=== PATIENT | female | born 1980 | race Caucasian/White ===

== ENCOUNTER 2016-03-17 10:58 | Day surgery (SDC) | payer OTHER ==
[2016-03-17] VITALS (7 sets, daily range): BP systolic 149–163; BP diastolic 73–99; PULSE 60–72; RESP 13–16; O2SAT 97–100
[~2016-03-17] VITALS: Ht 167.6 cm; Wt 82.1 kg
[~2016-03-17 10:58] MED LIST: BUPR1FIL3 SL; CeFAZolin Inj 2 GM in IV Premix 1 EACH IV ONE; FLUO20CA25 PO; IBUP800T28 PO; LISI10TA PO; NICO1PAT39 TD; PROP20TA5 PO; oral birth control
[2016-03-17] MEDS ORDERED: HYDROmorphone 2 mg/mL Inj ONE (10:59)
[2016-03-17] MEDS ORDERED: Ondansetron 2 mg/mL 2 mL Inj ONE (10:59)
[2016-03-17] MEDS ORDERED: MeTOProlol 1 mg/mL 5 mL Inj ONE (10:59)
[2016-03-17] MEDS ORDERED: Dexamethasone 4 mg/mL Inj ONE (10:59)
[2016-03-17] MEDS ORDERED: Propofol 10,000 mCg/mL 20 mL Inj ONE (10:59)
[2016-03-17] MEDS ORDERED: MetoCLOpramide 5 mg/mL 2 mL Inj ONE (10:59)
[2016-03-17] MEDS ORDERED: fentaNYL-PF 50 mCg/mL 2 mL Inj ONE (10:59)
[2016-03-17] MEDS ORDERED: CeFAZolin 2 Gm/50 mL D5W Duplex Bag IV ONE (11:04)
[2016-03-17] MEDS: Lactated Ringer's 1,000 ML IV SCH ×3 (12:01→16:15)
--- NOTE | 2016-03-17 12:44 | PCM.HPANE ---
Patient Data Surgeon Admitting Provider: Attending Provider:Fermin Nuñez DPM Primary Care Physician:Clinic,[facility] Residency Other Provider:Dodie Bustos Anesthesia Reason for Visit Right Foot Calcaneous [place] Fracture Ht/WT & BMI Height (Feet): 5 Height (Inches): 6.00 Weight (Kilograms): 82.1 Body Mass Index 29.00 Allergies Coded Allergies: pseudoephedrine (Verified Allergy, Severe, HEART RACES, 12/29/08) Past Anesthesia History Anesthesia History: Denies:: Abnormal Airway, Anesthesia Reactions (very nauseated ), Difficult Intubation, Fam Anesthesia Reaction Diabetes History Hx Diabetes?: No MRSA MRSA: No Medications Hypertension Medication: Yes Home Meds Incl Beta Jimi: Yes Date Beta Jimi Taken: Mar 17, 2016 Time Beta Jimi Taken: 814 Reported Medications [oral control] No Conflict Check1 Tab DAILY 03/15/16 Nicotine (Nicoderm Cq 7 mg/24 hr)1 Each Patch.[id number] Each TD DAILY 14 Days Ref 0 03/15/16 Ibuprofen 800 Mg [id number] Mg PO BID PRN For Pain Ref 0 03/15/16 Fluoxetine 20 Mg [id number] Mg PO DAILY Ref 0 03/15/16 Lisinopril 10 Mg [id number] Mg PO DAILY 30 Days Ref 0 03/15/16 Propranolol HCl 20 Mg [id number] Mg PO BID 90 Days Ref 0 03/15/16 Buprenorphine HCl/Naloxone HCl (Suboxone 8 mg-2 mg Sl Film)1 Each Film2 Each SL DAILY Ref 0 03/15/16 Discontinued Reported Medications Fluoxetine 40 Mg [id number] Mg PO BID #30 12/17/15 Clindamycin 150 Mg [id number] Mg PO TID #60 12/17/15 Buprenorphine HCl/Naloxone HCl (Suboxone 8 mg-2 mg Sl Film)1 Each Film2 Each SL DAILY Ref 0 12/17/15 Propranolol HCl 20 Mg/5 Ml [id number] Mg PO BID 12/17/15 Discontinued Scripts Buprenorphine HCl/Naloxone HCl (Suboxone 8 mg-2 mg Sl Film)1 Each Film1 Each SL DAILY PRN For Pain #10 FILM Prov:Marlo Gaona MD 12/17/15 History History of ENT Problems?: No HEENT History: Positive for:: TMJ (grinds- has nightguard, doesnt always wear) Denies:: Abnormal Airway Cataracts Difficult Intubation Dysphagia Glaucoma Hearing Problem Sinus Problem Other HEENT Pertinent History: has flipper, doesn't always wear Hx of Heart Problems?: Yes Cardiovascular History: Positive for:: Hypertension Denies:: AICD Congestive Heart Failure Heart Murmur Irregular Heartbeat Pacemaker Peripheral Vascular Hx of Respiratory Problem?: No Respiratory History: Denies:: Asthma COPD Oxygen Administration Pneumonia Tuberculosis Use of C-PAP Machine Use of Inhalers / NEBS Hx Neurologic Problems?: Yes Neurological History: Positive for:: Headaches Denies:: CVA Dementia Dizziness Multiple Sclerosis Parkinson's Disease Seizures Hx of GI Problems?: No Gastrointestinal History: Positive for:: Heartburn (during only) Denies:: Gall Bladder Disease Gastroesphageal Reflux Hiatal Hernia Liver Disease Rectal Bleeding Hx of Problems?: No Genitourinary History: Denies:: Kidney Stones Urinary Tract Infection (hx of not current) Female Hx: Denies:: Currently Problems with Breasts? Skin History: Denies:: History Skin Disorders? Pressure Ulcers Hx Musculoskeletal Problems?: Yes Musculoskeletal History: Positive for:: Back Injury (broken back with chronic problems-sciatica) Musculoskeletal Trauma (right foot current admission problem- DOI- 12/2015) Osteoarthritis (left foot ) Denies:: Fibromyalgia Joint Replacement Myasthenia Gravis Rheumatoid Arthritis Systemic Lupus Hx of Psycho/Social Problems?: Yes Psycho Social History: Positive for:: Anxiety (leads to heart palpitations ) Hx Depression Hx Surgeries?: Yes (LEEP) Hx Any Other Health Problems?: Yes Other History: Positive for:: Hospitalization Denies:: Cancer (cervical ) Thyroid Disease History Blood Transfusions: Positive for:: Accept Blood Products? Denies:: Blood Transfuse Reaction (had rhogam after last child) Blood Transfusions Hx Diabetes: No Hx Alcohol Use: YesAlcoholic Drinks Per Day: holidays onlyHx Substance Use: No Smoking Status: Current Every Day Smoker Have You Smoked inLast 12 mo: Yes (wearing patch, process quitting) Stop/Bang S-Snoring: Do You Snore Loudly: Yes T-Tired: feel tired, fatigued: No O-Obsered: Observed not breath: No P-Blood Pressure: treated: Yes B- Body Mass Index > 35 kg/m2: No A- Age over 50: No N- Neck Large Circumference: No G- Gender Male: No COURT Total Score: 2 Risk Assessment Category Category 1A: Patient has history of documented sleep apnea, and HAS NOT received any narcotic, sedative or anesthesia administration during this stay. Category 1B: Patient has history of documented sleep apnea, and HAS received any narcotic , sedative or anesthesia administration during this stay Category 2: Patient has SUSPECTED Obstructive Sleep Apnea, and HAS received any narcotic , sedative or anesthesia administration during this stay. Category 3: Patient has SUSPECTED Obstructive Sleep Apnea and HAS NOT received narcotic, sedative or anesthesia administration during this stay. Category 4: Outpatient in Procedural Areas with known sleep apnea or who screen positive for High Risk via the STOP/BANG questionnaire. Exam Exam Vital Signs Vital Signs Date Time Temp Pulse Resp B/P Pulse Ox O2 Delivery O2 Flow Rate FiO2 03/17/16 11:57 36.1 60 16 154/93 100 Room Air General Appearance: Alert, Oriented X3, Cooperative, No Acute Distress HEENT/AIRWAY: MP 2 Lungs: Clear to Auscultation, Normal Air Movement Heart: Exam Unremarkable, Regular Rate/Rhythm, No Murmurs/Rubs/Gallops Meds/Labs/Diagnostics Admission Meds Current Medications Lactated Ringer's (Lr) 1,000 ml @ 120 mls/hr Q8H20M IV Last administered on t 12:01; Start 03/17/16 at 05:00; Stop 03/17/16 at 13:19 Plan Impression Patient chart reviewed, patient interviewed and anesthestic plan with risks, benefits, and alternatives discussed, and informed consent obtained. NPO Status: 03/16 ASA Physical Status: ASA2 Mod Systemic Disease Anesthetic Plan: GA, Regional Block (Possible rescue right popliteal block if needed risks of bleeding, infection, permanent nerve damage discussed AQA consent signed) Bene/Risks/Altern/Consents: Yes HP Complete Prior to Induction: Yes Adarsh Watt MD Mar 17, 2016 12:44
[2016-03-17] MEDS ORDERED: Acetaminophen IV 1,000 MG in IV Premix 1 EACH IV ONE (13:00)
[2016-03-17] MEDS ORDERED: Bupivacaine-MPF 0.5% W/EPI 30 mL Inj INJ ONE (14:40)
[2016-03-17] MEDS ORDERED: Lidocaine 1%-Epi 1:100,000 20 mL Inj NERVEBLOCK ONE (14:40)
[2016-03-17] MEDS ORDERED: Lactated Ringer's 1,000 ML IV SCH (14:57)
[2016-03-17] MEDS ORDERED: Lactated Ringer's 500 ML IV PRN (14:57)
[2016-03-17] MEDS ORDERED: Atropine 0.4 mg/mL Inj IVPUSH PRN (15:00)
[2016-03-17] MEDS ORDERED: hydrALAZINE 20 mg/mL Inj IVPUSH PRN (15:00)
[2016-03-17] MEDS ORDERED: EPHEDrine Sulfate 50 mg/mL Inj IVPUSH PRN (15:00)
[2016-03-17] MEDS ORDERED: Ondansetron 2 mg/mL 2 mL Inj IVPUSH PRN (15:00)
[2016-03-17] MEDS ORDERED: Labetalol 5 mg/mL 4 mL Inj IV PRN (15:00)
[2016-03-17] MEDS ORDERED: MetoCLOpramide 5 mg/mL 2 mL Inj IVPUSH PRN (15:00)
[2016-03-17] MEDS ORDERED: Phenylephrine 10,000 mCg/mL Inj IVPUSH PRN (15:00)
[2016-03-17] MEDS ORDERED: HYDROmorphone 1 mg/mL Inj IVPUSH PRN (15:00)
[2016-03-17] MEDS ORDERED: HYDROcodone-APAP 5-325 mg Tablet PO PRN (16:25)
--- NOTE | 2016-03-17 16:32 | PCM.PODPO ---
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 The patient was transported into the operating room and given a preoperative block to the right ankle consistent to milliliters of half percent Marcaine and 1% lidocaine with epinephrine and a 11 mixture. Attention was first paid the lateral aspect of the right lower extremity. A linear incision extending from the slip of the distal fibula towards the fourth metatarsal base directly overlying the extensor digitorum muscle belly was performed with a #15 blade. Once that initially her skin all subcutaneous neurovascular structures were identified and retracted out of the surgical field. Blunt dissection was carried down to identify the extensor digitorum muscle belly. The inferior border of the extensor digitorum muscle belly was identified as the peroneal tendon sheath which was retracted plantarly. A 15 blade was utilized to sharply resect the extensor digitorum muscle belly distally exposing the calcaneocuboid joint. Sharp dissection was utilized to identify the anterior calcaneal process. Intraoperative C-arm x-ray was utilized to identify the area of nonunion a rongeur was utilized to remove all hypertrophic surrounding bone callus and the fracture site was identified. The anterior calcaneal process fracture was excised in whole. This wound was copiously flushed with large amounts of normal saline. A rasp was utilized to smooth down surrounding bone ensuring no prominence. The extensor digitorum muscle belly was then sutured back into place utilizing number 2. 0 Vicryl. Subcutaneous closure was performed utilizing number 3. 0 Vicryl and skin closure was performed utilizing #3-0 Prolene. Attention was then paid to the medial aspect of the talonavicular joint a linear incision approximately 3 cm in length was made utilizing a fresh #15 blade was tested initially her skin all subcutaneous neurovascular structures were identified and retracted O surgical field. Blunt dissection was carried out with a Metzenbaum scissor to identify deep capsular tissue. A linear incision was made throughout the course of the incision utilizing a fresh #15 blade exposing the talonavicular joint. A elias elevator was used to elevate the capsular tissue and periosteum off of the talus slightly proximal to the talonavicular joint. An area of prominence was noted corresponding to the previous talonavicular fracture site. This area was debrided using a running drawer and rasped smooth utilizing a large bone rasp. A [place] periosteal elevator was then utilized to probe all surrounding areas and no loose bone was noted. X-ray reveals a small area of dorsal exostoses which appears clinically and through direct visualization to be well adherent to surrounding bone. This is unlikely to cause any significant dorsal irritation and thus no further debridement of this area was performed. This wound was copious across a large amounts of normal saline and closure was performed utilizing number 3. 0 Vicryl skin closure was performed utilizing number 3. 0 Prolene. This wound was then dressed with Adaptic sterile 4 x 4 gauze Kerlix and the patient was placed into an Lm bandage. The patient will be placed into a postoperative shoe and the postoperative holding area. Prior to the dressing being placed the patient was given a 20 mL half percent Marcaine ankle block to the right lower extremity. The patient was awoken by anesthesia and transported out of the operating room into the postanesthesia care unit. No combinations occur during this procedure. Grafts, Implants: None Complications There were no periprocedural complications identified. Condition Stable Anesthetic Administered: GA Catheters: None Output, Estimated Blood Loss: 20 Blood Admin during surgery: No Surgical Cast or Splint: None Surgical Specimen Removed: No Specimen sent to Pathology: No Post Operative Plan Ice and elevate right lower extremity Partial weightbearing to the right heel with limited activity Keep dressing clean dry and intact Follow-up in 1 week discharge to home when stable Advanced as tolerated pain medication as needed for severe pain only Fermin Nuñez DPM Mar 17, 2016 16:32
[2016-03-17] MEDS: fentaNYL-PF 50 mCg/mL 2 mL Inj IVPUSH PRN ×3 (16:33→16:45)
--- NOTE | 2016-03-17 17:46 | PCM.ANEP1 ---
Post Anesthesia Phase 1 PACU Phase 1 Assessment Date of Service: Mar 17, 2016 Vital Signs Vital Signs Date Time Temp Pulse Resp B/P Pulse Ox O2 Delivery O2 Flow Rate FiO2 03/17/16 17:40 72 14 149/89 97 Room Air 03/17/16 17:00 36.6 69 14 163/88 97 Room Air 03/17/16 16:45 70 13 157/73 97 Room Air 03/17/16 16:40 71 14 152/74 97 Room Air 03/17/16 16:35 68 14 153/99 97 Room Air 03/17/16 16:30 36.6 71 14 154/88 99 Simple Mask 10 03/17/16 11:57 36.1 60 16 154/93 100 Room Air Anesthetic Administered: GA Level of Alertness: Awake, talking MARTIN's with Equal Strength: Yes Pain: No Nausea or Vomiting: No Oxygen Delivery: Room Air Lungs: Clear to Auscultation, Normal Air Movement Dermatome Level: Full Sensation Adarsh Watt MD Mar 17, 2016 17:46
--- NOTE | 2016-03-17 17:46 | PCM.ANEP2 ---
Post Anesthesia Evaluation ASA/CMS Post Anesthesia VS in Patient's Normal Range?: Yes Resp Stable; Airway Patent?: Yes CV Function & Hydration Stable: Yes Mental Status Recovered?: Yes Pain control Satisfactory?: Yes N/V Control Satisfactory?: Yes Adarsh Watt MD Mar 17, 2016 17:46
== END 2016-03-17 23:59 | disposition home or self-care (01) ==
LOC: SAS 10:58
PROVIDERS: ATTEND Podiatrist Foot & Ankle Surgery
DX: S92.042D Displaced other fracture of tuberosity of left calcaneus, subsequent encounter for fracture with routine healing (principal); S92.151D Displaced avulsion fracture (chip fracture) of right talus, subsequent encounter for fracture with routine healing; I10 Essential (primary) hypertension; R51 Headache; F41.9 Anxiety disorder, unspecified; F32.9 Major depressive disorder, single episode, unspecified; F17.210 Nicotine dependence, cigarettes, uncomplicated; X58.XXXD Exposure to other specified factors, subsequent encounter; Y92.9 Unspecified place or not applicable; Z79.899 Other long term (current) drug therapy